=== PATIENT | male | born 1935 | race Caucasian/White ===

== ENCOUNTER 2017-01-08 18:05 | Emergency (ER) | payer MEDICARE ==
[~2017-01-08] VITALS: Ht 177.8 cm; Wt 68.0 kg
[2017-01-08] MEDS ORDERED: CRESTOR 10 MG PO (18:18)
[2017-01-08] MEDS ORDERED: HYDROCODONE/APAP 5-325MG TABLET PO ONE (18:45)
[2017-01-08] MEDS ORDERED: IBUPROFEN 400 MG TABLET PO ONE (18:45)
[2017-01-08] MEDS ORDERED: IBUPROFEN 400 MG TABLET ONE (18:52)
[2017-01-08] MEDS ORDERED: HYDROCODONE/APAP 5-325MG TABLET ONE (18:52)
--- NOTE | 2017-01-08 19:00 | NUR ---
Patient discharged to home in stable conditon. Written and verbal after care instructions given to patient. Patient verbalizes understanding of instructions.
== END 2017-01-08 19:01 | disposition home or self-care (01) ==
LOC: ER 18:13
DX: S20.211A Contusion of right front wall of thorax, initial encounter (principal); E78.5 Hyperlipidemia, unspecified; Z88.0 Allergy status to penicillin; Z88.1 Allergy status to other antibiotic agents; Z88.2 Allergy status to sulfonamides; W22.8XXA Striking against or struck by other objects, initial encounter; Y93.89 Activity, other specified; Y92.254 Theater (live) as the place of occurrence of the external cause; Y99.9 Unspecified external cause status
CPT/HCPCS: 71010; 99283; A4663